=== PATIENT | female | born 1980 | race Caucasian/White ===

== ENCOUNTER 2018-03-04 17:13 | Emergency (ER) | payer SELFPAY ==
--- NOTE | 2018-03-04 18:50 | RAD REPORT ---
EXAM DESCRIPTION: CT - Head Brain Wo Cont - 03/04/2018 6:40 pm CLINICAL HISTORY: Dizziness COMPARISON: 2013 TECHNIQUE: Computed axial tomography of the head was obtained. IV contrast was not requested. All CT scans are performed using dose optimization technique as appropriate and may include automated exposure control or mA/KV adjustment according to patient size. FINDINGS: An intracranial bleed is not seen . The ventricles are normal in caliber. No extra-axial fluid collection is noted. Fluid within the sinuses/ mastoids is not seen. IMPRESSION: No acute intracranial abnormality is seen. If patient's symptoms persist MRI of the bra in would be recommended.
[2018-03-04 18:51] LABS: Absolute Lymphocytes (CBC) 3.4 K/uL (0.7-4.9); Absolute Monocytes 0.8 K/uL (0.1-1.3); Absolute Neutrophil 4.8 K/uL (1.8-8.0); Basophils % 0.3 % (0-1.3); Eosinophils % 1.7 % (0-4.4); Hematocrit 35.1 % (36.0-45.0); Lymphocytes % 37.1 % (15.3-44.8); MCH 31.2 pg (27.0-35.0); MCV 89.4 fL (80-100); MPV 8.1 fL (7.6-11.3); Monocytes % 8.6 % (3.3-12.3); RBC Red Blood Cell Count 3.92 M/uL (3.86-4.86)
--- NOTE | 2018-03-04 18:51 | RAD REPORT ---
EXAM DESCRIPTION: [facility] Single View03/04/2018 6:45 pm CLINICAL HISTORY: cough COMPARISON: none FINDINGS: The lungs appear clear of acute infiltrate. The heart is normal size IMPRESSION: No acute abnormalities displayed
[2018-03-04 19:11] LABS: ALT/SGPT 49 U/L (12-78); AST/SGOT 54 U/L (15-37); Alkaline Phosphatase 59 U/L (45-117); BUN Blood Urea Nitrogen 9 mg/dL (7-18); Bicarbonate 30 mmol/L (21-32); Bilirubin Direct 0.1 mg/dL (0-0.2); Bilirubin Total 0.3 mg/dL (0.2-1.0); Glucose Level 84 mg/dL (74-106); Lipase 229 U/L (73-393); Magnesium 2.4 mg/dL (1.8-2.4); NT PRO-BNP 11 pg/mL (<125); Potassium 3.7 mmol/L (3.5-5.1); Protein, Total 7.6 g/dL (6.4-8.2); Sodium Level 142 mmol/L (136-145); Troponin (Emerg Dept Use Only) < 0.02 ng/mL (0.0-0.045)
[2018-03-04 19:12] LABS: Urine Blood NEGATIVE (NEG); Urine Glucose NEGATIVE (NEG); Urine Protein NEGATIVE (NEG)
[2018-03-04 19:16] LABS: Protime INR 1.05
--- NOTE | 2018-03-04 21:41 | EDPHYS ---
Physician Documentation [facility] Name: Tawnya Simental Age: 38 yrs Sex: Female : 1980 Arrival Date: 03/04/2018 Time: 17:15 Bed 28 Private MD: None, None ED Physician Harshad Mohamud HPI: 03/04 18:26 This 38 yrs old Female presents to ER via Ambulatory with complaints of High king Blood Pressure, Facial Swelling. 18:26 The patient has elevated blood pressure and discovered this at home. Onset: The king symptoms/episode began/occurred 3 month(s) ago. Modifying factors: The symptoms are aggravated by activity, The symptoms are alleviated by remaining still. Historical: - Allergies: 17:25 No Known Allergies; sv - Home Meds: 17:25 None [Active]; sv - PMHx: 17:25 None; sv - PSHx: 17:25 Tubal ligation; sv - Immunization history:: Flu vaccine is not up to date. - Social history:: Smoking status: Patient/guardian denies using tobacco, the patient reports quitting approximately .25 years ago. - Ebola Screening: : No symptoms or risks identified at this time. ROS: 18:27 Constitutional: Negative for fever, chills, and weight loss, Eyes: Negative for injury, king pain, redness, and discharge, ENT: Negative for injury, pain, and discharge, Neck: Negative for injury, pain, and swelling, Cardiovascular: Negative for chest pain, palpitations, and edema, Abdomen/GI: Negative for abdominal pain, nausea, vomiting, diarrhea, and constipation, Back: Negative for injury and pain, : Negative for injury, bleeding, discharge, and swelling, MS/Extremity: Negative for injury and deformity, Skin: Negative for injury, rash, and discoloration, Psych: Negative for depression, anxiety, suicide ideation, homicidal ideation, and hallucinations, Allergy/Immunology: Negative for hives, rash, and allergies, Endocrine: Negative for neck swelling, polydipsia, polyuria, polyphagia, and marked weight changes, Hematologic/Lymphatic: Negative for swollen nodes, abnormal bleeding, and unusual bruising. 18:27 Respiratory: Positive for cough, shortness of breath. 18:27 Neuro: Positive for dizziness, speech changes, weakness, of the right arm. Exam: 18:27 Constitutional: This is a well developed, well nourished patient who is awake, alert, king and in no acute distress. Head/Face: Normocephalic, atraumatic. Eyes: Pupils equal round and reactive to light, extra-ocular motions intact. Lids and lashes normal. Conjunctiva and sclera are non-icteric and not injected. Cornea within normal limits. Periorbital areas with no swelling, redness, or edema. ENT: Nares patent. No nasal discharge, no septal abnormalities noted. Tympanic membranes are normal and external auditory canals are clear. Oropharynx with no redness, swelling, or masses, exudates, or evidence of obstruction, uvula midline. Mucous membranes moist. Neck: Trachea midline, no thyromegaly or masses palpated, and no cervical lymphadenopathy. Supple, full range of motion without nuchal rigidity, or vertebral point tenderness. No Meningismus. Chest/axilla: Normal chest wall appearance and motion. Nontender with no deformity. No lesions are appreciated. Cardiovascular: Regular rate and rhythm with a normal S1 and S2. No gallops, murmurs, or rubs. Normal PMI, no JVD. No pulse deficits. Respiratory: Lungs have equal breath sounds bilaterally, clear to auscultation and percussion. No rales, rhonchi or wheezes noted. No increased work of breathing, no retractions or nasal flaring. Abdomen/GI: Soft, non-tender, with normal bowel sounds. No distension or tympany. No guarding or rebound. No evidence of tenderness throughout. Back: No spinal tenderness. No costovertebral tenderness. Full range of motion. Pelvic Exam: Normal external genitalia. Speculum exam with closed cervical os, no discharge or bleeding noted. Bimanual exam with normal adnexa, no adnexal or cervical motion tenderness. Normal uterus. Skin: Warm, dry with normal turgor. Normal color with no rashes, no lesions, and no evidence of cellulitis. MS/ Extremity: Pulses equal, no cyanosis. Neurovascular intact. Full, normal range of motion. Neuro: Awake and alert, GCS 15, oriented to person, place, time, and situation. Cranial nerves II-XII grossly intact. Motor strength 5/5 in all extremities. Sensory grossly intact. Cerebellar exam normal. Normal gait. Psych: Awake, alert, with orientation to person, place and time. Behavior, mood, and affect are within normal limits. Vital Signs: 17:25 BP 140 / 102; Pulse 68; Resp 20; Temp 97.8; Pulse Ox 100% ; Weight 91.63 kg; Height 5 sv ft. 11 in. (180.34 cm); Pain 4/10; 18:17 BP 124 / 85; Pulse 63; Resp 17; Pulse Ox 98% on R/A; rv 18:57 BP 128 / 82; Pulse 65; Resp 16; Pulse Ox 100% ; rv 19:35 BP 103 / 68; Pulse 56; Resp 16; Pulse Ox 96% on R/A; rv 20:24 BP 122 / 83; Pulse 58; Resp 13; Pulse Ox 96% on R/A; rv 17:25 Body Mass Index 28.17 (91.63 kg, 180.34 cm) sv NIH Stroke Scale Scores: 18:28 NIHSS Score: 0 king MDM: 18:18 Patient medically screened. king 18:29 Data reviewed: vital signs, nurses notes, lab test result(s), EKG, radiologic studies, [facility] CT scan, plain films. 03/04 18:26 Order name: Basic Metabolic Panel; Complete Time: 19:59 [facility] 03/04 18:26 Order name: CBC with Diff; Complete Time: 19:59 [facility] 03/04 18:26 Order name: LFT's; Complete Time: 19:59 [facility] 03/04 18:26 Order name: Magnesium; Complete Time: 19:59 [facility] 03/04 18:26 Order name: NT PRO-BNP; Complete Time: 19:59 [facility] 03/04 18:26 Order name: PT-INR; Complete Time: 19:59 [facility] 03/04 18:26 Order name: Troponin (emerg Dept Use Only); Complete Time: 19:59 [facility] 03/04 18:26 Order name: XRAY Chest (1 view); Complete Time: 19:59 [facility] 03/04 18:26 Order name: Lipase; Complete Time: 19:59 [facility] 03/04 18:26 Order name: D-Dimer; Complete Time: 19:59 [facility] 03/04 18:26 Order name: Urine Dipstick--Ancillary (enter results); Complete Time: 19:59 03/04 18:26 Order name: Urine --Ancillary (enter results); Complete Time: 19:59 03/04 18:30 Order name: CT Head Brain wo Cont; Complete Time: 19:59 [facility] 03/04 20:00 Order name: Troponin (emerg Dept Use Only); Complete Time: 21:13 [facility] 03/04 18:26 Order name: EKG; Complete Time: 18:27 [facility] 03/04 18:26 Order name: Cardiac monitoring; Complete Time: 19:43 [facility] 03/04 18:26 Order name: EKG - Nurse/Tech; Complete Time: 19:43 [facility] 03/04 18:26 Order name: IV Saline Lock; Complete Time: 18:38 [facility] 03/04 18:26 Order name: Labs collected and sent; Complete Time: 18:38 [facility] 03/04 18:26 Order name: O2 Per Protocol; Complete Time: 18:38 [facility] 03/04 18:26 Order name: O2 Sat Monitoring; Complete Time: 18:38 [facility] 03/04 18:26 Order name: Urine Dipstick-Ancillary (obtain specimen); Complete Time: 18:38 [facility] 03/04 18:26 Order name: Urine Test (obtain specimen); Complete Time: 18:38 [facility] 03/04 21:18 Order name: CONS Physician Consult EDMS 03/04 21:18 Order name: Echo with Doppler EDMS Administered Medications: 21:55 Drug: Lovenox 1 mg/kg Route: Sub-Q; Site: left lower abdomen; rv 23:18 Follow up: Response: No adverse reaction rv 21:55 Drug: Pepcid 20 mg Route: IVP; Site: right forearm; rv 23:18 Follow up: Response: No adverse reaction rv 21:56 Drug: Aspirin Chewable Tablet 324 mg Route: PO; rv 23:18 Follow up: Response: No adverse reaction rv Disposition: 03/04/18 21:14 Hospitalization ordered by Aristeo Wilhelm for Observation. Preliminary diagnosis are Other chest pain, Essential (primary) hypertension, Abnormal electrocardiogram [ECG] [EKG]. - Bed requested for Telemetry/MedSurg (observation). - Status is Observation. rv - Condition is Stable. - Problem is new. - Symptoms have improved. UTI on Admission? No NIH Stroke Scale - NIH Stroke Score Date: 03/04/2018 Time: 18:28 Total Score = 0 1a. Level of Consciousness (LOC) - 0(Alert) 1b. Level of Consciousness (LOC) (Year \T\ Age) - 0(Both) 1c. LOC Commands (Open \T\ Closes Eyes/Cattle Examiner) - 0(Both) 2. Best Gaze (Lateral Gaze Paresis) - 0(Normal) 3. Visual Field Loss - 0(No visual loss) 4. Facial Palsy - 0(Normal) 5a. Left Arm: Motor (10-second hold) - 0(No drift) 5b. Right Arm: Motor (10-second hold) - 0(No drift) 6a. Left Leg: Motor (5-second hold - always test supine) - 0(No drift) 6b. Right Leg: Motor (5-second hold - always test supine) - 0(No drift) 7. Limb Ataxia (finger/nose \T\ heel/baumann - test with eyes open) - 0(Absent) 8. Sensory Loss (pinprick arms/legs/face) - 0(Normal) 9. Best Language: Aphasia (description/naming/reading) - 0(No aphasia) 10. Dysarthria (speech clarity - read or repeat words) - 0(Normal) 11. Extinction and Inattention (visual/tactile/auditory/spatial/personal) - 0(No abnormality) Initials: [facility] Signatures: Dispatcher [employer] EDKeila Willoughby RN RN sv Anderson, Corey, MD MD cha Martinez, Eric em1 Patrick Macias RN RN rv Corrections: (The following items were deleted from the chart) 20:01 20:00 Repeat Cardiac Enzymes at ordered. formerly [facility] 21:39 21:14 Hospitalization Ordered by Aristeo Wilhelm MD for Observation. Preliminary em1 diagnosis is Other chest pain; Essential (primary) hypertension; Abnormal electrocardiogram [ECG] [EKG]. Bed requested for Telemetry/MedSurg (observation). Status is Observation. Condition is Stable. Problem is new. Symptoms have improved. UTI on Admission? No. king 23:19 21:39 03/04/2018 21:14 Hospitalization Ordered by Aristeo Wilhelm MD for rv Observation. Preliminary diagnosis is Other chest pain; Essential (primary) hypertension; Abnormal electrocardiogram [ECG] [EKG]. Bed requested for Telemetry/MedSurg (observation). Status is Observation. Condition is Stable. Problem is new. Symptoms have improved. UTI on Admission? No. em1
--- NOTE | 2018-03-04 21:41 | ER ---
Nurse's Notes [facility] Name: Tawnya Simental Age: 38 yrs Sex: Female : 1980 Arrival Date: 03/04/2018 Time: 17:15 Bed 28 Private MD: None, None Diagnosis: Other chest pain;Essential (primary) hypertension;Abnormal electrocardiogram [ECG] [EKG] Presentation: 03/04 17:23 Presenting complaint: Patient states: HTN at the dentist today, facial and hand sv swelling over the last couple of months, weight gain, fatigue, left side pain. Denies dysuria. Transition of care: patient was not received from another setting of care. Onset of symptoms was March 04, 2018. Care prior to arrival: None. 17:23 Method Of Arrival: Ambulatory sv 17:23 Acuity: JUAN 3 sv 18:17 Risk Assessment: Do you want to hurt yourself or someone else? Patient reports no rv desire to harm self or others. Initial Sepsis Screen: Does the patient meet any 2 criteria? No. Patient's initial sepsis screen is negative. Does the patient have a suspected source of infection? No. Patient's initial sepsis screen is negative. Triage Assessment: 17:26 General: Appears in no apparent distress. comfortable, Behavior is calm, cooperative, sv appropriate for age. Neuro: Level of Consciousness is awake, alert, obeys commands, Oriented to person, place, time, situation, Moves all extremities. Full function Gait is steady. Respiratory: Respiratory effort is even, unlabored, Respiratory pattern is regular, symmetrical. Historical: - Allergies: 17:25 No Known Allergies; sv - Home Meds: 17:25 None [Active]; sv - PMHx: 17:25 None; sv - PSHx: 17:25 Tubal ligation; sv - Immunization history:: Flu vaccine is not up to date. - Social history:: Smoking status: Patient/guardian denies using tobacco, the patient reports quitting approximately .25 years ago. - Ebola Screening: : No symptoms or risks identified at this time. Screenin:16 Abuse screen: Denies threats or abuse. Denies injuries from another. Nutritional rv screening: No deficits noted. Tuberculosis screening: No symptoms or risk factors identified. Fall Risk None identified. Assessment: 18:16 General: Appears in no apparent distress. comfortable, Behavior is calm, cooperative. rv Pain: Complains of pain in LEFT FLANK. Neuro: Level of Consciousness is awake, alert, obeys commands, Oriented to person, place, time, situation. Cardiovascular: Capillary refill < 3 seconds. Respiratory: Airway is patent. GI: No signs and/or symptoms were reported involving the gastrointestinal system. : No signs and/or symptoms were reported regarding the genitourinary system. EENT: No signs and/or symptoms were reported regarding the EENT system. Derm: Skin is intact. 19:36 Reassessment: Patient appears in no apparent distress at this time. Patient and/or rv family updated on plan of care and expected duration. Pain level reassessed. Patient is alert, oriented x 3, equal unlabored respirations, skin warm/dry/pink. Vital Signs: 17:25 BP 140 / 102; Pulse 68; Resp 20; Temp 97.8; Pulse Ox 100% ; Weight 91.63 kg; Height 5 sv ft. 11 in. (180.34 cm); Pain 4/10; 18:17 BP 124 / 85; Pulse 63; Resp 17; Pulse Ox 98% on R/A; rv 18:57 BP 128 / 82; Pulse 65; Resp 16; Pulse Ox 100% ; rv 19:35 BP 103 / 68; Pulse 56; Resp 16; Pulse Ox 96% on R/A; rv 20:24 BP 122 / 83; Pulse 58; Resp 13; Pulse Ox 96% on R/A; rv 17:25 Body Mass Index 28.17 (91.63 kg, 180.34 cm) sv NIH Stroke Scale Scores: 18:28 NIHSS Score: 0 [facility] ED Course: 17:15 Patient arrived in ED. sb2 17:15 None, None is Private Physician. sb2 17:24 Triage completed. sv 17:25 Arm band placed on. sv 18:17 Patient has correct armband on for positive identification. Bed in low position. Call rv light in reach. Side rails up X 1. Adult w/ patient. Pulse ox on. NIBP on. 18:18 Harshad Mohamud MD is Attending Physician. [facility] 18:35 Inserted saline lock: 20 gauge in right forearm, using aseptic technique. Blood rv collected. 18:35 Initial lab(s) drawn, by pa, sent to lab. rv 18:38 Urine --Ancillary (enter results) Sent. rv 18:38 Urine Dipstick--Ancillary (enter results) Sent. rv 18:38 D-Dimer Sent. rv 18:42 CT Head Brain wo Cont In Process Unspecified. EDMS 18:46 XRAY Chest (1 view) In Process Unspecified. EDMS 18:56 No provider procedures requiring assistance completed. rv 19:43 nuclear monitoring technician on. jp3 19:43 EKG done, by ED staff, reviewed by Harshad Mohamud MD. jp3 21:13 Aristeo Wilhelm MD is Hospitalizing Provider. king 23:19 IV discontinued, bleeding controlled, No redness/swelling at site. Pressure dressing rv applied. Administered Medications: 21:55 Drug: Lovenox 1 mg/kg Route: Sub-Q; Site: left lower abdomen; rv 23:18 Follow up: Response: No adverse reaction rv 21:55 Drug: Pepcid 20 mg Route: IVP; Site: right forearm; rv 23:18 Follow up: Response: No adverse reaction rv 21:56 Drug: Aspirin Chewable Tablet 324 mg Route: PO; rv 23:18 Follow up: Response: No adverse reaction rv Outcome: 21:14 Decision to Hospitalize by Provider. king 23:19 Discharged to home ambulatory. rv 23:19 Condition: good 23:19 Discharge instructions given to patient, Instructed on Demonstrated understanding of instructions, follow-up care. 23:19 Patient left the ED. rv NIH Stroke Scale - NIH Stroke Score Date: 03/04/2018 Time: 18:28 Total Score = 0 1a. Level of Consciousness (LOC) - 0(Alert) 1b. Level of Consciousness (LOC) (Year \T\ Age) - 0(Both) 1c. LOC Commands (Open \T\ Closes Eyes/Heading Saw Operator) - 0(Both) 2. Best Gaze (Lateral Gaze Paresis) - 0(Normal) 3. Visual Field Loss - 0(No visual loss) 4. Facial Palsy - 0(Normal) 5a. Left Arm: Motor (10-second hold) - 0(No drift) 5b. Right Arm: Motor (10-second hold) - 0(No drift) 6a. Left Leg: Motor (5-second hold - always test supine) - 0(No drift) 6b. Right Leg: Motor (5-second hold - always test supine) - 0(No drift) 7. Limb Ataxia (finger/nose \T\ heel/baumann - test with eyes open) - 0(Absent) 8. Sensory Loss (pinprick arms/legs/face) - 0(Normal) 9. Best Language: Aphasia (description/naming/reading) - 0(No aphasia) 10. Dysarthria (speech clarity - read or repeat words) - 0(Normal) 11. Extinction and Inattention (visual/tactile/auditory/spatial/personal) - 0(No abnormality) Initials: king Signatures: Dispatcher [employer] Keila Sheridan RN RN sv Anderson, Corey, MD MD cha Billeau, Sheri sb2 Patrick Macias RN RN rv Lawrence Knight jp3 Corrections: (The following items were deleted from the chart) 17:26 17:23 Presenting complaint: Patient states: HTN at the dentist today, facial sv and hand swelling over the last couple of months, fatigue. sv 17:27 17:23 Presenting complaint: Patient states: HTN at the dentist today, facial sv and hand swelling over the last couple of months, fatigue, left side pain. Denies dysuria. sv 17:27 17:25 Pulse 68bpm; Resp 20bpm; Pulse Ox 100%; Temp 97.8F; 91.63 kg; Height 5 sv ft. 11 in.; BMI: 28.1; sv 18:58 18:57 Condition: good rv rv 18:58 18:57 Discharged to home via wheelchair, rv rv 18:58 18:57 Discharge instructions given to patient, Instructed on medication usage, rv Demonstrated understanding of instructions, follow-up care, medications, Prescriptions given X 1, rv 18:59 18:56 IV discontinued, bleeding controlled, No redness/swelling at site. rv Pressure dressing applied, rv
[2018-03-04] MEDS ORDERED: ASPIRIN 81 MG CHEWABLE TABLET ONE (21:46)
[2018-03-04] MEDS ORDERED: FAMOTIDINE 20 MG/2 ML VIAL IV ONE (21:47)
[2018-03-04] MEDS ORDERED: ENOXAPARIN 100 MG/ML SYR SQ ONE (21:47)
--- NOTE | 2018-03-04 22:07 | P.CNS ---
Date of Consult: 03/04/18 Reason for Consult: Chest pain Requesting Physician: Harshad Mohamud Chief Complaint: High blood pressure History of Present Illness: Ms Simental is a 38 years old woman with pretty benign past medical, start about 3 months ago with right side of the neck pain, on and off associated with back pain. She also complaining of recurrent episode of swelling face. She denies any allergy, stuffy nose or itchiness with that have. Today she was having dinner and had had BP checked. It was 177/102. She denied any chest pain or shortness of breath tonight. No nausea, vomiting or diaphoresis. He denied any headache or dizziness. Lab work shows normal WBC count, trauma I negative x2, D-dimer negative. Her creatinine is slightly elevated 1.4. EKG shows sinus rhythm at 60 BP and with nonspecific ST abnormality. Allergies No Known Allergies Allergy (Unverified 03/04/18 22:00) Home medications list reviewed: Yes - Past Medical/Surgical History Past Medical History: Reviewed- Non-Contributory -: Tubal ligation - Social History Smoking Status: Former smoker Alcohol use: No CD- Drugs: No Place of Residence: Home Review of Systems 10-point ROS is otherwise unremarkable Physical Examination General: Alert, In no apparent distress HEENT: Atraumatic, PERRLA, Mucous membr. moist/pink, EOMI, Sclerae nonicteric Neck: Supple, 2+ carotid pulse no bruit, No LAD, Without JVD or thyroid abnormality Respiratory: Clear to auscultation bilaterally, Normal air movement Cardiovascular: Regular rate/rhythm, Normal S1 S2 Gastrointestinal: Normal bowel sounds, No tenderness Musculoskeletal: No tenderness Integumentary: No rashes Neurological: Normal gait, Normal speech, Normal tone, Normal affect Lymphatics: No axilla or inguinal lymphadenopathy Laboratory Data (last 24 hrs) 03/04/18 18:35: PT 12.4, INR 1.05 03/04/18 18:35: WBC 9.2, Hgb 12.2, Hct 35.1 L, Plt Count 267 03/04/18 18:35: Sodium 142, Potassium 3.7, BUN 9, Creatinine 1.40 H, Glucose 84 , Magnesium 2.4, Total Bilirubin 0.3, AST 54 H, ALT 49, Alkaline Phosphatase 59 , Lipase 229 - Problems (1) Hypertension Current Visit: Yes Status: Acute Qualifiers: Hypertension type: essential hypertension Qualified Code(s): I10 - Essential (primary) hypertension (2) Acute renal injury Current Visit: Yes Status: Acute (3) Atypical chest pain Current Visit: Yes Status: Acute Conclusions/Impression: The patient initial blood pressure in ER was 140/102. At this point she has no specific complaints. Kidney function is mildly abnormal, differential diagnosis include dehydration, uncontrolled high blood pressure. He has received IV fluids. At my encounter the BP was within normal limits. A have offered to the patient to stay Overnight for better blood pressure monitor, and further studies, but she preferred to follow up as outpatient. I have encouraged the patient to find a PCP harry and have also advised the patient to come back to ED if symptoms get worse. She will be discharged home in stable condition. Patient Discharge Instructions: establish PCP HARRY and monitor BP Diet: AHA Activity: Ad yoanna
--- NOTE | 2018-03-05 07:14 | EKG ---
Test Date: 2018-03-04 Test Time: 19:36:41 Computer Technology Trainer: JUANY MEASUREMENT RESULTS: Intervals: Rate: 58 MO: 232 QRSD: 84 QT: 368 QTc: 361 [place]: P: 44 MO: 232 QRS: 60 T: 158 INTERPRETIVE STATEMENTS: Sinus bradycardia with 1st degree AV block ST & T wave abnormality, consider inferior ischemia Abnormal ECG No previous ECG available for comparison Electronically Signed On 03-05-18 07:13:48 CLERGY MEMBER by Kaiser Llanos
== END 2018-03-04 22:45 | disposition home or self-care (01) ==
LOC: ER 17:13 → ERHOLD 21:15 → UNDOADMOB 21:15 → ER 22:45 → UNDODISOB 22:45
DX: I10 Essential (primary) hypertension (principal); R07.89 Other chest pain; R94.31 Abnormal electrocardiogram [ECG] [EKG]; Z87.891 Personal history of nicotine dependence; N17.9 Acute kidney failure, unspecified
CPT/HCPCS: 36415; 70450; 71045; 80048; 80076; 81003; 81025; 83690; 83735; 83880; 84484; 85025; 85379; 85610; 93005; 96372; 96374; 99284; G0378; J1650

== ENCOUNTER 2019-10-11 16:29 | Emergency (ER) | payer SELFPAY ==
[2019-10-11 18:23] LABS: Absolute Lymphocytes (CBC) 2.6 K/uL (0.7-4.9); Basophils % 0.7 % (0-1.3); Hematocrit 42.4 % (36.0-45.0); Lymphocytes % 23.9 % (15.3-44.8); MPV 8.4 fL (7.6-11.3); RBC Red Blood Cell Count 4.92 M/uL (3.86-4.86)
[2019-10-11 18:47] LABS: ALT/SGPT 32 U/L (12-78); AST/SGOT 22 U/L (15-37); Albumin 3.7 g/dL (3.4-5.0); Alkaline Phosphatase 83 U/L (45-117); BUN Blood Urea Nitrogen 9 mg/dL (7-18); Bicarbonate 24 mmol/L (21-32); Bilirubin Direct < 0.1 mg/dL (0-0.2); Bilirubin Total 0.2 mg/dL (0.2-1.0); Glucose Level 104 mg/dL (74-106); Magnesium 2.1 mg/dL (1.8-2.4); Potassium 3.4 mmol/L (3.5-5.1); Protein, Total 7.1 g/dL (6.4-8.2); Sodium Level 140 mmol/L (136-145); T3 Free 2.38 pg/mL (2.18-3.98); Thyroid Stimulating Hormone 0.009 uIU/mL (0.360-3.740); Troponin (Emerg Dept Use Only) < 0.02 ng/mL (0.0-0.045)
--- NOTE | 2019-10-11 19:19 | RAD REPORT ---
EXAM DESCRIPTION: RAD - Chest Single View - 10/11/2019 6:23 pm CLINICAL HISTORY: Chest pain;Palpitations COMPARISON: Single-view chest February 2018 TECHNIQUE: AP portable chest image was obtained 10/11/2019 6:23 pm . FINDINGS: Lungs are clear. Heart and vasculature are normal. No measurable pleural effusion and no p neumothorax. No acute bony abnormality seen. No acute aortic findings suspected. IMPRESSION: No acute cardiopulmonary process. No significant change
--- NOTE | 2019-10-11 19:25 | RAD REPORT ---
EXAM DESCRIPTION: CT - Abdomen Pelvis W Contrast - 10/11/2019 7:16 pm CLINICAL HISTORY: ABD PAIN COMPARISON: No comparisons TECHNIQUE: Biphasic, helical CT imaging of the abdomen and pelvis was performed following 100 ml non -ionic IV contrast. No oral contrast was given. All CT scans are performed using dose optimization technique as appropriate and may include automated exposure control or mA/KV adjustment according to patient size. FINDINGS: No suspicious findings in the lung bases. The liver, spleen, and pancreas show no suspicious findings. Gallbladder and biliary tree are also wi thout suspicious finding. Gallstones can be occult on CT imaging. Symmetric renal function is seen with no hydronephrosis or suspicious renal mass. No pyelonephritis o r acute parenchymal process. No bladder abnormalities. Right adrenal gland is normal. Left adrenal gl and contains a 12 millimeter low-attenuation mass. Attenuation value is 9 Hounsfield units. This is m ost likely an incidental adenoma. No uterine abnormality. Ovaries and adnexa within normal limits. Th ere is a 2 centimeter cyst along the right-side anterior vaginal wall or labia. This could be a vagin al inclusion cyst, Stefany's duct cyst or possibly a Bartholin's cyst. None are considered of acute c linical significance. No dilated bowel loops or bowel wall thickening. No free air, free fluid or inflammatory stranding. No mass or bulky lymphadenopathy. Patient has a small 20 millimeter x 10 millimeter umbilical fat on ly hernia. Neck is equal to the transverse diameter of the hernia. No suspicious bony findings. IMPRESSION: Contrast enhanced CT abdomen and pelvis showing no significant or suspicious finding. Nonacute findings detailed in the body of the report.
--- NOTE | 2019-10-11 19:41 | ER ---
Nurse's Notes [facility] Name: Tawnya Simental Age: 39 yrs Sex: Female : 1980 Arrival Date: 10/11/2019 Time: 16:32 Bed 8 Private MD: Diagnosis: Essential (primary) hypertension;Dyspnea;Hypokalemia;Thyrotoxicosis [hyperthyroidism] Presentation: 10/10 16:40 Chief complaint: Patient states: SOB for 3 months, Dizziness intermittently. High blood ll1 pressure today. Feels dizzy with near syncope .States her thyroid levels were low yesterday. Coronavirus screen: Proceed with normal triage. Patient denies a cough. Patient denies shortness of breath or difficulty breathing. Patient denies measured and/or subjective temperature greater than 100.4F prior to today's visit. Patient denies travel on a cruise ship or to a country the [facility] currently lists as an affected area. Patient denies contact with known and/or suspected case of COVID-19. Ebola Screen: Patient denies travel to an Ebola-affected area in the 21 days before illness onset. Initial Sepsis Screen: Does the patient meet any 2 criteria? HR > 90 bpm. No. Patient's initial sepsis screen is negative. Risk Assessment: Do you want to hurt yourself or someone else? Patient reports no desire to harm self or others. Onset of symptoms was July 11, 2019. 16:40 Method Of Arrival: Ambulatory ll1 16:40 Acuity: JUAN 3 ll1 20:04 Initial Sepsis Screen: Does the patient have a suspected source of infection? No. mg2 Patient's initial sepsis screen is negative. 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 - Social history:: Smoking status: Patient/guardian denies using tobacco, the patient reports quitting approximately 2 years ago, Patient/guardian denies using alcohol, street drugs, tobacco products. Screenin:29 Abuse screen: Denies threats or abuse. Nutritional screening: No deficits noted. Tuberculosis screening: No symptoms or risk factors identified. Fall Risk None identified. Assessment: 18:00 General: Appears in no apparent distress. Behavior is calm, cooperative, appropriate ah for age. Pain: Denies pain. Neuro: Level of Consciousness is awake, alert, obeys commands, Oriented to person, place, time, situation, Appropriate for age Reports dizziness, since a few hours. Cardiovascular: Capillary refill < 3 seconds Patient's skin is warm and dry. Pulses are palpable in right radial artery and left radial artery Rhythm is irregular. Respiratory: Airway is patent Respiratory effort is even, unlabored, Respiratory pattern is regular, symmetrical, Breath sounds are clear bilaterally. GI: Derm: Skin is intact, is healthy with good turgor, Skin is dry. 19:00 Reassessment: Patient and/or family updated on plan of care and expected duration. Pain ah level reassessed. Patient is alert, oriented x 3, equal unlabored respirations, skin warm/dry/pink. 20:03 Reassessment: Patient appears in no apparent distress at this time. Patient states mg2 feeling better. Patient states symptoms have improved. Vital Signs: 16:40 BP 165 / 105; Pulse 105; Resp 18; Temp 98.8; Pulse Ox 96% ; Pain 8/10; ll1 17:36 BP 146 / 81; Pulse 80; Resp 17; Pulse Ox 99% ; ll1 18:30 BP 135 / 90; Pulse 73; Resp 19; Pulse Ox 99% on R/A; em 20:02 BP 144 / 82; Pulse 81; Resp 17; Temp 98.5; Pulse Ox 100% on R/A; mg2 ED Course: 16:32 Patient arrived in ED. bp1 16:40 Kemar Lomas MD is Attending Physician. kdr 16:42 Triage completed. ll1 16:43 Arm band placed on Patient notified of wait time. ll1 17:50 Dianna Llanos, RN is Primary Nurse. ah 18:18 Initial lab(s) drawn, by me, sent to lab. EKG done, by ED staff, reviewed by Kemar Lomas MD X-ray(s) taken. Inserted saline lock: 20 gauge in right antecubital area, using aseptic technique. Blood collected. Patient maintains SpO2 saturation greater than 95% on room air. 18:19 Bed in low position. Call light in reach. Side rails up X 1. Warm blanket given. Verbal jp3 reassurance given. monitor worker on. Pulse ox on. NIBP on. 18:23 XRAY Chest (1 view) In Process Unspecified. EDWA 19:15 Attending Physician role handed off by Kemar Lomas MD cha 19:15 Harshad Mohamud MD is Attending Physician. [facility] 19:16 CT Abd/Pelvis - IV Contrast Only In Process Unspecified. EDMS 19:39 Keila Pedersen MD is Referral Physician. king 20:03 No provider procedures requiring assistance completed. IV discontinued, intact, mg2 bleeding controlled, No redness/swelling at site. Pressure dressing applied. Administered Medications: 19:45 Drug: ToPROL XL 25 mg Route: PO; mg2 20:03 Follow up: Response: No adverse reaction; Medication administered at discharge. mg2 Outcome: 19:40 Discharge ordered by . king 20:03 Discharged to home ambulatory, with family. mg2 20:03 Condition: good 20:03 Discharge instructions given to patient, family, Instructed on discharge instructions, follow up and referral plans. medication usage, Demonstrated understanding of instructions, follow-up care, medications, Prescriptions given X 2. 20:04 Patient left the ED. mg2 Signatures: Dispatcher [employer] EDWA Harshad Mohamud MD MD cha Rittger, Kevin, MD MD kdr Munoz, Edgar, RN RN Dionisio Miller RN RN mg2 Lawrence Knight jp3 Dianna Llanos, RN Erasmo Farnsworth RN RN ll1 Monserrat Elizalde bp1 Corrections: (The following items were deleted from the chart) 16:44 16:40 Chief complaint: Patient states: SOB for 3 months, Dizziness intermittently. High ll1 blood pressure today. Feels dizzy with near syncope. ll1
--- NOTE | 2019-10-11 19:41 | EDPHYS ---
Physician Documentation [facility] Name: Tawnya Simental Age: 39 yrs Sex: Female : 1980 Arrival Date: 10/11/2019 Time: 16:32 Bed 8 Private MD: VAIBHAV Physician Harshad Mohamud HPI: 10/10 17:48 This 39 yrs old Female presents to ER via Ambulatory with complaints of High kdr Blood Pressure, Shortness Of Breath, Dizziness. 17:48 The patient presents with multiple c/o including palpations, near syncope, dizziness, kdr left lower leg hassan (today), abdominal pain (2 months). Severity of symptoms: At their worst the symptoms were moderate severe incapacitating just prior to arrival, today, in the emergency department the symptoms are unchanged. The patient has experienced similar episodes in the past, several times. The patient has been recently seen by a physician: the patient's primary care provider. The patient states that she feels like her hypothyroid s/s are returning. States that she only took half of her thyroid medication this morning and that her thyroid medication was recently recalled.. 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 - Social history:: Smoking status: Patient/guardian denies using tobacco, the patient reports quitting approximately 2 years ago, Patient/guardian denies using alcohol, street drugs, tobacco products. ROS: 17:48 Constitutional: Negative for fever, chills, and weight loss, Eyes: Negative for injury, kdr pain, redness, and discharge, ENT: Negative for injury, pain, and discharge, Neck: Negative for injury, pain, and swelling, Respiratory: Negative for shortness of breath, cough, wheezing, and pleuritic chest pain, Abdomen/GI: Negative for abdominal pain, nausea, vomiting, diarrhea, and constipation, Back: Negative for injury and pain, : Negative for injury, bleeding, discharge, and swelling, Skin: Negative for injury, rash, and discoloration, Psych: Negative for depression, anxiety, suicide ideation, homicidal ideation, and hallucinations, Allergy/Immunology: Negative for hives, rash, and allergies, Endocrine: Negative for neck swelling, polydipsia, polyuria, polyphagia, and marked weight changes, Hematologic/Lymphatic: Negative for swollen nodes, abnormal bleeding, and unusual bruising. 17:48 Cardiovascular: Positive for chest pain, palpitations, Negative for edema, orthopnea, paroxysmal nocturnal dyspnea. 17:48 Neuro: Positive for dizziness, near syncope, weakness. Exam: 17:48 Constitutional: This is a well developed, well nourished patient who is awake, alert, kdr and in no acute distress. Head/Face: Normocephalic, atraumatic. Eyes: Pupils equal round and reactive to light, extra-ocular motions intact. Lids and lashes normal. Conjunctiva and sclera are non-icteric and not injected. Cornea within normal limits. Periorbital areas with no swelling, redness, or edema. Neck: Trachea midline, no thyromegaly or masses palpated, and no cervical lymphadenopathy. Supple, full range of motion without nuchal rigidity, or vertebral point tenderness. No Meningismus. Chest/axilla: Normal chest wall appearance and motion. Nontender with no deformity. No lesions are appreciated. Cardiovascular: Regular rate and rhythm with a normal S1 and S2. No gallops, murmurs, or rubs. Normal PMI, no JVD. No pulse deficits. Respiratory: Lungs have equal breath sounds bilaterally, clear to auscultation and percussion. No rales, rhonchi or wheezes noted. No increased work of breathing, no retractions or nasal flaring. Back: No spinal tenderness. No costovertebral tenderness. Full range of motion. Skin: Warm, dry with normal turgor. Normal color with no rashes, no lesions, and no evidence of cellulitis. MS/ Extremity: Pulses equal, no cyanosis. Neurovascular intact. Full, normal range of motion. Neuro: Awake and alert, GCS 15, oriented to person, place, time, and situation. Cranial nerves II-XII grossly intact. Motor strength 5/5 in all extremities. Sensory grossly intact. Cerebellar exam normal. Normal gait. Psych: Awake, alert, with orientation to person, place and time. Behavior, mood, and affect are within normal limits. 17:48 Abdomen/GI: Inspection: abdomen appears normal, Bowel sounds: active, Palpation: soft, mild abdominal tenderness, in all quadrants, mass, is not appreciated, rebound tenderness, is not appreciated. 19:33 Musculoskeletal/extremity: DVT Exam: No signs of deep vein thrombosis. no pain, no king swelling, no tenderness, negative Homans' sign noted on exam, no appreciated bluish discoloration, no erythema, no increased warmth. 19:38 Musculoskeletal/extremity: no homans and no cords, no trauma, no hc state, no hx pe, no king hx dvt. 19:44 ECG was reviewed by the Attending Physician. [facility] Vital Signs: 16:40 BP 165 / 105; Pulse 105; Resp 18; Temp 98.8; Pulse Ox 96% ; Pain 8/10; ll1 17:36 BP 146 / 81; Pulse 80; Resp 17; Pulse Ox 99% ; ll1 18:30 BP 135 / 90; Pulse 73; Resp 19; Pulse Ox 99% on R/A; em 20:02 BP 144 / 82; Pulse 81; Resp 17; Temp 98.5; Pulse Ox 100% on R/A; mg2 MDM: 19:15 Patient medically screened. king 19:34 Data reviewed: vital signs, nurses notes, lab test result(s), EKG, radiologic studies, king CT scan, plain films. 19:35 Data interpreted: monitoring analyst: rate is 73 beats/min, Pulse oximetry: on room air is king 99 %. Test interpretation: by ED physician or midlevel provider: ECG, plain radiologic studies. Counseling: I had a detailed discussion with the patient and/or guardian regarding: the historical points, exam findings, and any diagnostic results supporting the discharge/admit diagnosis, the presence of at least one elevated blood pressure reading (>120/80) during this emergency department visit, lab results, radiology results, the need for outpatient follow up, for definitive care, an powder room attendant. ED course: all labs reviewed , dr mccord ordered, all discussed with the patient. 10/10 17:47 Order name: Basic Metabolic Panel; Complete Time: 19:32 kdr 10/10 17:47 Order name: CBC with Diff; Complete Time: 19:32 kdr 10/10 17:47 Order name: LFT's; Complete Time: 19:32 kdr 10/10 17:47 Order name: Magnesium; Complete Time: 19:32 kdr 10/10 17:47 Order name: Troponin (emerg Dept Use Only); Complete Time: 19:32 [facility] 10/10 17:47 Order name: TSH; Complete Time: 19:32 [facility] 10/10 17:47 Order name: XRAY Chest (1 view); Complete Time: 19:32 [facility] 10/10 17:47 Order name: EKG; Complete Time: 17:48 kdr 10/10 17:47 Order name: Cardiac monitoring; Complete Time: 18:04 [facility] 10/10 17:47 Order name: EKG - Nurse/Tech; Complete Time: 18:04 [facility] 10/10 17:47 Order name: T3 Free; Complete Time: 19:32 kdr 10/10 18:05 Order name: CT Abd/Pelvis - IV Contrast Only; Complete Time: 19:32 [facility] 10/10 17:47 Order name: IV Saline Lock; Complete Time: 18:19 [facility] 10/10 17:47 Order name: Labs collected and sent; Complete Time: 18:19 kdr 10/10 17:47 Order name: O2 Per Protocol; Complete Time: 18:04 [facility] 10/10 17:47 Order name: O2 Sat Monitoring; Complete Time: 18:04 [facility] 10/10 19:41 Order name: PO challenge: juice; Complete Time: 19:46 king EC:44 Rate is 72 beats/min. Rhythm is regular. QRS [place] is Normal. CA interval is normal. QRS king interval is normal. QT interval is normal. No Q waves. T waves are Normal. No ST changes noted. Clinical impression: Normal ECG and No evidence of ischemia. Interpreted by me. Reviewed by me. Administered Medications: 19:45 Drug: ToPROL XL 25 mg Route: PO; mg2 20:03 Follow up: Response: No adverse reaction; Medication administered at discharge. mg2 Disposition: 10/11/19 19:40 Discharged to Home. Impression: Essential (primary) hypertension, Dyspnea, Hypokalemia, Thyrotoxicosis [hyperthyroidism]. - Condition is Stable. - Discharge Instructions: Potassium Content of Foods, Hypertension, Hyperthyroidism, Shortness of Breath, Shortness of Breath, Pgnv-ng-[id number], Hypertension, Kgat-jf-Ksht, Hypokalemia. - Prescriptions for Pepcid 20 mg Oral Tablet - take 1 tablet by ORAL route every 12 hours for 10 days; 20 tablet. Toprol XL 25 mg Oral Tablet - take 1 tablet by ORAL route once daily; 20 tablet. - Medication Reconciliation Form, Thank You Letter, Antibiotic Education, Prescription Opioid Use form. - Follow up: Private Physician; When: 2 - 3 days; Reason: Recheck today's complaints, Continuance of care, Re-evaluation by your physician. Follow up: Keila Pedersen MD; When: 2 - 3 days; Reason: Recheck today's complaints, Re-evaluation by your physician. - Problem is new. - Symptoms have improved. Signatures: Dispatcher [employer] [facility] Harshad Mohamud MD MD cha Rittger, Kevin, MD MD [facility] Dionisio Gross RN RN mg2 Erasmo Abdalla RN RN ll1 Corrections: (The following items were deleted from the chart) 17:49 17:48 T4 FREE+C.LAB.BRZ ordered. [facility] 19:41 19:40 10/11/2019 19:40 Discharged to Home. Impression: Essential (primary) king hypertension; Dyspnea. Condition is Stable. Forms are Medication Reconciliation Form, Thank You Letter, Antibiotic Education, Prescription Opioid Use. Follow up: Private Physician; When: 2 - 3 days; Reason: Recheck today's complaints, Continuance of care, Re-evaluation by your physician. Follow up: Keila Pedersen; When: 2 - 3 days; Reason: Recheck today's complaints, Re-evaluation by your physician. Problem is new. Symptoms have improved. king 20:04 19:41 10/11/2019 19:40 Discharged to Home. Impression: Essential (primary) mg2 hypertension; Dyspnea; Hypokalemia; Thyrotoxicosis [hyperthyroidism]. Condition is Stable. Discharge Instructions: Hypertension, Shortness of Breath, Shortness of Breath, Xojd-[id number]-Jufl, Hypertension, Cnmm-tp-[id number]. Forms are Medication Reconciliation Form, Thank You Letter, Antibiotic Education, Prescription Opioid Use. Follow up: Private Physician; When: 2 - 3 days; Reason: Recheck today's complaints, Continuance of care, Re-evaluation by your physician. Follow up: Keila Pedersen; When: 2 - 3 days; Reason: Recheck today's complaints, Re-evaluation by your physician. Problem is new. Symptoms have improved. king
[2019-10-11] MEDS ORDERED: METOPROLOL XL 50 MG TAB PO ONE (19:51)
[2019-10-11 20:13] VITALS: BP 144/82; TEMP 98.5; O2SAT 100
--- NOTE | 2019-10-12 06:21 | EKG ---
Test Date: 2019-10-11 Test Time: 17:54:33 Applications System Analyst: JUANY MEASUREMENT RESULTS: Intervals: Rate: 72 MA: 160 QRSD: 82 QT: 382 QTc: 418 [place]: P: 57 MA: 160 QRS: 63 T: 66 INTERPRETIVE STATEMENTS: Normal sinus rhythm Normal ECG Compared to ECG 03/04/2018 19:36:41 Sinus bradycardia no longer present First degree AV block no longer present ST (T wave) deviation no longer present Possible ischemia no longer present Electronically Signed On 10-12-19 06:20:16 CDT by Alvarado Bill
== END 2019-10-11 20:04 | disposition home or self-care (01) ==
LOC: ER 16:29
DX: I10 Essential (primary) hypertension (principal); E87.6 Hypokalemia; E05.90 Thyrotoxicosis, unspecified without thyrotoxic crisis or storm; Z87.891 Personal history of nicotine dependence
CPT/HCPCS: 36415; 71045; 74177; 80048; 80076; 83735; 84443; 84481; 84484; 85025; 93005; 99285; Q9967

== ENCOUNTER 2019-10-16 15:43 | Emergency (ER) | payer SELFPAY ==
--- NOTE | 2019-10-16 17:59 | ER ---
Nurse's Notes [facility] Name: Tawnya Simental Age: 39 yrs Sex: Female : 1980 Arrival Date: 10/16/2019 Time: 15:44 Bed 17 Private MD: Diagnosis: Essential (primary) hypertension Presentation: 10/15 15:49 Chief complaint: Patient states: BP has been elevated since last visit here Sunday. New ll1 medications started for her thyroid level being low. BP 192/112 before coming in. Coronavirus screen: Proceed with normal triage. Patient denies a cough. Patient denies shortness of breath or difficulty breathing. Patient denies measured and/or subjective temperature greater than 100.4F prior to today's visit. Patient denies travel on a cruise ship or to a country the [facility] currently lists as an affected area. Patient denies contact with known and/or suspected case of COVID-19. Ebola Screen: Patient denies travel to an Ebola-affected area in the 21 days before illness onset. Initial Sepsis Screen: Does the patient meet any 2 criteria? No. Patient's initial sepsis screen is negative. Risk Assessment: Do you want to hurt yourself or someone else? Patient reports no desire to harm self or others. Onset of symptoms was October 16, 2019. 15:49 Method Of Arrival: Ambulatory ll1 15:49 Acuity: JUAN 3 ll1 17:50 Initial Sepsis Screen: Does the patient have a suspected source of infection? No. ah Patient's initial sepsis screen is negative. Historical: - Allergies: 15:51 No Known Allergies; ll1 - PMHx: 15:51 Hypertension; ll1 - PSHx: 15:51 Tubal ligation; ll1 - Immunization history:: Flu vaccine is not up to date. - Social history:: Smoking status: Patient denies any tobacco usage or history of. Patient/guardian denies using alcohol, street drugs, tobacco products. Screenin:50 Abuse screen: Denies threats or abuse. Nutritional screening: No deficits noted. Tuberculosis screening: No symptoms or risk factors identified. Fall Risk None identified. Assessment: 17:49 General: Appears in no apparent distress. Behavior is calm, cooperative, appropriate for age. Pain: Denies pain. Neuro: Level of Consciousness is awake, alert, obeys commands, Oriented to person, place, time, situation, Appropriate for age. Cardiovascular: Heart tones S1 S2 present Capillary refill < 3 seconds Patient's skin is warm and dry. Rhythm is sinus rhythm. Respiratory: Airway is patent Respiratory effort is even, unlabored, Respiratory pattern is regular, symmetrical. Derm: Skin is intact, is healthy with good turgor, Skin is dry. Vital Signs: 15:49 BP 153 / 87; Pulse 85; Resp 18; Temp 98.0; Pulse Ox 100% ; Pain 7/10; ll1 17:06 BP 138 / 99; Pulse 75; ll1 17:43 BP 151 / 92; Pulse 70; Resp 18; Pulse Ox 98% ; ah ED Course: 15:44 Patient arrived in ED. mr 15:51 Triage completed. ll1 15:51 Arm band placed on Patient notified of wait time. ll1 17:34 Ashanti Gillis FNP-C is [facility]. kb 17:34 Faustino Lee MD is Attending Physician. kb 17:39 Dianna Llanos, RN is Primary Nurse. 18:06 No provider procedures requiring assistance completed. 18:07 Patient has correct armband on for positive identification. Bed in low position. Call light in reach. Side rails up X 1. Adult w/ patient. environmental compliance inspector on. Pulse ox on. NIBP on. 18:07 Patient did not have IV access during this emergency room visit. Administered Medications: No medications were administered Outcome: 17:58 Discharge ordered by . 18:07 Discharged to home ambulatory. 18:07 Condition: good 18:07 Discharge instructions given to patient, Instructed on discharge instructions, follow up and referral plans. Demonstrated understanding of instructions, follow-up care. 18:08 Patient left the ED. Signatures: Ashanti Gillis FNP-C FNP-Suraj Joan Nixon Dianna Llanos RN RN Erasmo Abdalla RN RN ll1 Corrections: (The following items were deleted from the chart) 15:53 15:49 Chief complaint: Patient states: BP has been elevated since last visit here ll1 Sunday. New medications started. BP 192/112 before coming in. ll1
--- NOTE | 2019-10-16 18:00 | EDPHYS ---
Physician Documentation [facility] Name: Tawnya Simental Age: 39 yrs Sex: Female : 1980 Arrival Date: 10/16/2019 Time: 15:44 Bed 17 Private MD: ED Physician Faustino Lee HPI: 10/15 17:59 This 39 yrs old Female presents to ER via Ambulatory with complaints of High kb Blood Pressure. 17:59 The patient has elevated blood pressure and discovered this at home, with a home kb device. Onset: The symptoms/episode began/occurred today. Associated signs and symptoms: The patient has no apparent associated signs or symptoms. Severity of symptoms: At its worst the blood pressure was moderate, in the emergency department the blood pressure is improved. The patient has not experienced similar symptoms in the past. The patient has been recently seen by a physician: the patient's primary care provider, 4 day(s) ago, The patient has been recently seen at the [facility] Emergency Department, last week. Pt reports she thinks she had a panic attack that caused her BP to go up. Reports she had shortness of breath and tingling in her fingertips. Symptoms resolved since arrival. States she feels fine now. 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 . Historical: - Allergies: 15:51 No Known Allergies; ll1 - PMHx: 15:51 Hypertension; ll1 - PSHx: 15:51 Tubal ligation; ll1 - Immunization history:: Flu vaccine is not up to date. - Social history:: Smoking status: Patient denies any tobacco usage or history of. Patient/guardian denies using alcohol, street drugs, tobacco products. ROS: 17:58 Constitutional: Negative for fever, chills, and weight loss, ENT: Negative for injury, kb pain, and discharge, Neck: Negative for injury, pain, and swelling, Cardiovascular: Negative for chest pain, palpitations, and edema, Respiratory: Negative for shortness of breath, cough, wheezing, and pleuritic chest pain, Abdomen/GI: Negative for abdominal pain, nausea, vomiting, diarrhea, and constipation, MS/Extremity: Negative for injury and deformity, Skin: Negative for injury, rash, and discoloration, Neuro: Negative for headache, weakness, numbness, tingling, and seizure. Exam: 17:59 Constitutional: This is a well developed, well nourished patient who is awake, alert, kb and in no acute distress. Head/Face: Normocephalic, atraumatic. Chest/axilla: Normal chest wall appearance and motion. Nontender with no deformity. No lesions are appreciated. Cardiovascular: Regular rate and rhythm with a normal S1 and S2. No gallops, murmurs, or rubs. Normal PMI, no JVD. No pulse deficits. Respiratory: Lungs have equal breath sounds bilaterally, clear to auscultation and percussion. No rales, rhonchi or wheezes noted. No increased work of breathing, no retractions or nasal flaring. Abdomen/GI: Soft, non-tender, with normal bowel sounds. No distension or tympany. No guarding or rebound. No evidence of tenderness throughout. Skin: Warm, dry with normal turgor. Normal color with no rashes, no lesions, and no evidence of cellulitis. MS/ Extremity: Pulses equal, no cyanosis. Neurovascular intact. Full, normal range of motion. Neuro: Awake and alert, GCS 15, oriented to person, place, time, and situation. Cranial nerves II-XII grossly intact. Motor strength 5/5 in all extremities. Sensory grossly intact. Cerebellar exam normal. Normal gait. Vital Signs: 15:49 BP 153 / 87; Pulse 85; Resp 18; Temp 98.0; Pulse Ox 100% ; Pain 7/10; ll1 17:06 BP 138 / 99; Pulse 75; ll1 17:43 BP 151 / 92; Pulse 70; Resp 18; Pulse Ox 98% ; ah MDM: 17:35 Patient medically screened. kb 17:59 Data reviewed: vital signs, nurses notes. Data interpreted: Pulse oximetry: on room air kb is 100 %. Interpretation: normal. Counseling: I had a detailed discussion with the patient and/or guardian regarding: the historical points, exam findings, and any diagnostic results supporting the discharge/admit diagnosis, the need for outpatient follow up, a family practitioner, to return to the emergency department if symptoms worsen or persist or if there are any questions or concerns that arise at home. Administered Medications: No medications were administered Disposition: 19:34 Co-signature as Attending Physician, Faustino Lee MD. [email or web address] Disposition: 10/16/19 17:58 Discharged to Home. Impression: Essential (primary) hypertension. - Condition is Stable. - Discharge Instructions: Hypertension, Owij-hy-Lgud, Panic Attacks, Bpgr-cs-Ntag. - Medication Reconciliation Form, Thank You Letter, Antibiotic Education, Prescription Opioid Use form. - Follow up: Emergency Department; When: As needed; Reason: Worsening of condition. Follow up: Private Physician; When: 2 - 3 days; Reason: Recheck today's complaints, Continuance of care, Re-evaluation by your physician. Signatures: Ashanti Gillis, [employer] SUPERVISOR LIQUID YEAST-CkDianna Littlejohn, RN RN Erasmo Abdalla RN RN ll1 Faustino Lee MD MD [email or web address] Corrections: (The following items were deleted from the chart) 18:08 17:58 10/16/2019 17:58 Discharged to Home. Impression: Essential (primary) ah hypertension. Condition is Stable. Forms are Medication Reconciliation Form, Thank You Letter, Antibiotic Education, Prescription Opioid Use. Follow up: Emergency Department; When: As needed; Reason: Worsening of condition. Follow up: Private Physician; When: 2 - 3 days; Reason: Recheck today's complaints, Continuance of care, Re-evaluation by your physician. kb
[2019-10-16 19:13] VITALS: BP 138/99
== END 2019-10-16 18:08 | disposition home or self-care (01) ==
LOC: ER 15:43
DX: I10 Essential (primary) hypertension (principal)
CPT/HCPCS: 99284

== ENCOUNTER 2022-06-02 08:20 | Emergency (ER) | payer BC, SELFPAY ==
--- OUTSIDE RECORDS SUMMARY | 2022-06-02 08:23 | XMS REPORT | Continuity of Care Document ---
:1980 Author Organization [facility] t Address [address] [place] [address] [address] [place] [address] Care Team Providers Name Role Phone PCP, PATIENT DOES NOT HAVE A Primary Care Physician Unavaila ble Only, Ang Db Test Attending Clinician Unavailable Luis BEEF FARMER, Faith Attending Clinician FAITH SMITH Attending Clinician Unavailable Doctor Unassigned, [place] Attending Clinician Unavailable Payers Payer Name Policy Type Policy Number Effective Date Expiration Date S ource Problems Condition Condition Condition Status Onset Resolution Last Treating Co mments Source Name Details Category Date Date Treatment Clinician Date Abdominal Abdominal Disease Active Overview: Univers pain, pain, 5-16 Formattin ity of other other 00:00: g of this [place] specified specified [address] [facility] site site might be Branch different from the original. Side Allergies, Adverse Reactions, Alerts Allergy Allergy Status Severity Reaction(s) Onset Inactive Treating Comm ents Source Name Type Date Date Clinician NO KNOWN Drug Active Univers ALLERGIE Class ity of S [facility] Social History Social Habit Start Date Stop Date Quantity Comments Source Exposure to Yes [facility] SARS-CoV-2 (event) [facility] History of tobacco Cigarette Smoker University of use [facility] Alcohol intake 2014-11-04 2014-11-04 Current University of 00:00:00 00:00:00 non-drinker of [facility] alcohol Branch (finding) Cigarettes smoked 2014-11-04 2014-11-04 Univers ity of current (pack per 00:00:00 00:00:00 ) - Reported Branch Cigarette 2014-11-04 2014-11-04 University of pack-years 00:00:00 00:00:00 [facility] Tobacco use and 2014-11-04 2014-11-04 Never used Universit y of exposure 00:00:00 00:00:00 [facility] Sex Assigned At [birth year] Universit y of 00:00:00 00:00:00 [facility] Smoking Status Start Date Stop Date Source Current every day smoker 2014-11-04 00:00:00 Uni versity of [facility] Medications Ordered Filled Start Stop Current Ordering Indication Dosage Frequency Signature Comments Components Source Medication Medication Date Date Medication? Clinician (SIG) Name Name No known No Univers medications 7-15 ity of 11:28: [address] No known No Univers medications 7-15 ity of 11:28: [address] Immunizations Ordered Filled Immunization Date Status Comments Sourc e Immunization Name Name Td 2008-04-[address] [facility] 00:00:00 [facility] Td 2008-04-[address] [facility] 00:00:00 [facility] Procedures Procedure Date / Time Performed Performing Clinician Sourc e CONSENT/REFUSAL FOR 2021-05-05 21:40:10 Doctor Unassigned, [facility] AND Name [facility] TREATMENT Encounters Start End Encounter Admission Attending Care Care Encounter Source Date/Time Date/Time Type Type Clinicians Facility Department ID 2021-05-05 2021-05-05 Laboratory Only, Ang Db Test [facility] [id number] Univers 16:00:00 16:15:00 [id number] ity of [place] [id number] [place] as LINDSEY?BLEA [id number] [address] MEDICAL OFFICE BUILDING 2021-05-05 2021-05-05 Outpatient R LUIS [facility] [id number] Univers 16:00:00 16:00:00 FAITH ity of [facility] 2021-05-05 2021-05-05 Orders Doctor WU [id number] Univers 00:00:00 00:00:00 Only Unassigned, SAMEER [id number] ity of [place] [facility] [id number] [place] as [id number] Medi vero 009 Branch Results This patient has no known results.
[2022-06-02 09:00] LABS: Hematocrit 40.6 % (36.0-45.0); Lymphocytes % 35.7 % (15.3-44.8); MCV 84.1 fL (80-100); MPV 7.7 fL (7.6-11.3); RBC Red Blood Cell Count 4.83 M/uL (3.86-4.86)
[2022-06-02 09:16] LABS: Albumin 3.6 g/dL (3.4-5.0); Bilirubin Total 0.3 mg/dL (0.2-1.0); Potassium 3.6 mmol/L (3.5-5.1); Protein, Total 7.1 g/dL (6.4-8.2); Troponin High Sensitivity 4.1 pg/mL (<58.9)
--- NOTE | 2022-06-02 10:34 | RAD REPORT ---
EXAM DESCRIPTION: CT - Abdomen Pelvis W Contrast - 06/02/2022 10:15 am CLINICAL HISTORY: Abdominal pain COMPARISON: 2019 TECHNIQUE: Computed axial tomography of the abdomen pelvis was obtained. 100 cc Isovue-300 was admin istered intravenously. Oral contrast was not requested which limits evaluation of bowel and appendix All CT scans are performed using dose optimization technique as appropriate and may include automated exposure control or mA/KV adjustment according to patient size. FINDINGS: The liver, spleen, pancreas, right adrenal and kidneys appear unremarkable. There is no evidence of diverticulitis. Normal appendix Small left adrenal nodule unchanged likely an adenoma. No adnexal mass Small umbilical hernia IMPRESSION: No acute abnormality is displayed.
--- NOTE | 2022-06-02 11:06 | EDPHYS ---
Physician Documentation [facility] Name: Tawnya Simental Age: 42 yrs Sex: Female : 1980 Arrival Date: 06/02/2022 Time: 08:25 Bed 4 Private MD: ED Physician Darren Hayes HPI: 06/02 08:44 This 42 yrs old Female presents to ER via Ambulatory with complaints of Pain When aj3 Breathing, Numbness Of Arm, Abdominal Pain. 08:44 Patient reports having some chronic abdominal issues that she is seeing GI for. She has aj3 been having worsening epigastric pain and constant diarrhea. Today she noticed some pain in her neck which radiated down to her left arm and causes left hand tingling. No reports of any chest pain, dizziness, bloody/black stool, urinary symptoms, fever or chills.. 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 - Social history:: Smoking status: Patient reports the use of cigarette tobacco products, smokes one-half pack cigarettes per day. ROS: 08:44 Constitutional: Negative for fever, chills, and weight loss, Skin: Negative for injury, aj3 rash, and discoloration, Neuro: Negative for syncope, headache, weakness, numbness, tingling, and seizure. 08:44 Cardiovascular: Negative for chest pain. 08:44 Respiratory: Positive for shortness of breath. 08:44 Abdomen/GI: Positive for abdominal pain, diarrhea. 08:44 Neuro: Positive for numbness, tingling, to left hand. Exam: 08:47 Constitutional: This is a well developed, well nourished patient who is awake, alert, aj3 and in no acute distress. Head/Face: Normocephalic, atraumatic. ENT: Nares patent. No nasal discharge, no septal abnormalities noted. Tympanic membranes are normal and external auditory canals are clear. Oropharynx with no redness, swelling, or masses, exudates, or evidence of obstruction, uvula midline. Mucous membranes moist. Neck: Trachea midline and no cervical lymphadenopathy. Supple, full range of motion without nuchal rigidity. Cardiovascular: Regular rate and rhythm with a normal S1 and S2. No gallops, murmurs, or rubs. Normal PMI, no JVD. No pulse deficits. Respiratory: Lungs have equal breath sounds bilaterally, clear to auscultation and percussion. No rales, rhonchi or wheezes noted. No increased work of breathing, no retractions or nasal flaring. Skin: Warm, dry with normal turgor. Normal color with no rashes, no lesions, and no evidence of cellulitis. MS/ Extremity: Pulses equal, no cyanosis. Neurovascular intact. Full, normal range of motion. Neuro: Awake and alert, GCS 15, oriented to person, place, time, and situation. Cranial nerves II-XII grossly intact. Motor strength 5/5 in all extremities. Sensory grossly intact. Cerebellar exam normal. Normal gait. 08:47 Abdomen/GI: Bowel sounds: normal, Palpation: mild abdominal tenderness, in the epigastric area. 08:47 ECG was reviewed by the Attending Physician. aj3 Vital Signs: 08:40 BP 139 / 82; Pulse 79; Resp 16; Temp 98.4; Pulse Ox 100% ; Weight 91.17 kg; Height 5 ll1 ft. 11 in. (180.34 cm); Pain 4/10; 09:34 BP 108 / 68; Pulse 66; ll1 11:30 BP 110 / 73; Pulse 61; Resp 15; Pulse Ox 100% ; Pain 2/10; ll1 08:40 Body Mass Index 28.03 (91.17 kg, 180.34 cm) ll1 MDM: 08:31 Patient medically screened. aj3 11:12 Differential diagnosis: ACS, pneumonia, electrolyte imbalance, colitis. Data reviewed: aj3 vital signs, nurses notes. ED course: ED work-up is reassuring. CT scan without signs of infection or obstruction after reviewing. EKG and labs also normal. Patient does not require admission at this time. She has appointment next week with GI regarding her chronic diarrhea. Will start her on Bentyl. Patient given nausea medication in the ED. Discharge results and plan discussed with patient and is agreeable. ER return precautions given. 11:15 Consideration of Admission/Observation Patient symptoms improved after reassessment. aj3 Findings do not warrant admission.. Care significantly affected by the following chronic conditions: Thyroid disease. Counseling: I had a detailed discussion with the patient and/or guardian regarding: the historical points, exam findings, and any diagnostic results supporting the discharge/admit diagnosis, lab results, radiology results, to return to the emergency department if symptoms worsen or persist or if there are any questions or concerns that arise at home. 06/02 08:43 Order name: CBC with Diff; Complete Time: 09:06/02 08:43 Order name: CMP; Complete Time: :06/02 08:43 Order name: Lipase; Complete Time: :06/02 08:43 Order name: Test, Serum; Complete Time: :06/02 08:43 Order name: Troponin HS; Complete Time: :06/02 08:43 Order name: CT Abd/Pelvis - IV Contrast Only; Complete Time: 10:56 06/02 08:43 Order name: IV Saline Lock; Complete Time: 08:52 06/02 08:43 Order name: Labs collected and sent; Complete Time: 08:52 06/02 08:43 Order name: EKG - Nurse/Tech; Complete Time: 08:45 EC:41 Rate is 72 beats/min. Rhythm is regular. QRS [place] is Normal. [place] interval is normal. QRS aj3 interval is normal. QT interval is normal. T waves are Normal. No ST changes noted. Clinical impression: Normal ECG. Administered Medications: 11:16 Drug: Zofran (Ondansetron) 4 mg Route: IVP; Site: right antecubital; ll1 11:36 Follow up: Response: No adverse reaction; Nausea is decreased; RASS: Alert and Calm (0) ll1 Disposition: 13:11 Co-signature as Attending Physician, Darren Hayes MD I reviewed the patient's care rt provided by the Advanced Practice Provider and agree with the diagnosis and treatment plan. Disposition Summary: 06/02/22 11:05 Discharge Ordered Location: Home aj3 Problem: new aj3 Symptoms: have improved aj3 Condition: Stable aj3 Diagnosis - Other abdominal pain aj3 - Diarrhea, unspecified aj3 - left adenoma aj3 Followup: aj3 - With: Private Physician - When: 1 - 2 days - Reason: Recheck today's complaints Discharge Instructions: - Discharge Summary Sheet aj3 - Diarrhea, Adult aj3 Forms: - Medication Reconciliation Form aj3 - Work release form aj3 - Thank You Letter aj3 - Antibiotic Education aj3 - Prescription Opioid Use aj3 Prescriptions: - dicyclomine 20 mg Oral tablet - take 1 tablet by ORAL route 2 times per day; 30 tablet; Refills: 0, Product aj3 Selection Permitted - ondansetron 4 mg Oral - take 4 milligrams by SUBLINGUAL route every 8 hours; 15 tablet; Refills: 0, aj3 Product Selection Permitted Signatures: Dispatcher [employer] EDMS Erasmo Abdalla RN RN ll1 Marian Siu, WHITING CAN WORKER WHITING CAN WORKER aj3 Darren Hayes MD MD rt Corrections: (The following items were deleted from the chart) 11:17 11:12 ED course: ED work-up is reassuring. Chest x-ray was clear after reviewing. EKG aj3 and labs also normal. Patient does not require admission at this time. She has appointment next week with GI regarding her chronic diarrhea. Will start her on Bentyl. Patient given nausea medication in the ED. Discharge results and plan discussed with patient and is agreeable. ER return precautions given. aj3
--- NOTE | 2022-06-02 11:06 | ER ---
Nurse's Notes [facility] Name: Tawnya Simental Age: 42 yrs Sex: Female : 1980 Arrival Date: 06/02/2022 Time: 08:25 Bed 4 Private MD: Diagnosis: Other abdominal pain;Diarrhea, unspecified;left adenoma Presentation: 06/02 08:40 Chief complaint: Patient states: Abd pain for about 1 year with diarrhea and some ll1 nausea. Today throat feels tight, pain L arm, hand tingly. No fevers. Coronavirus screen: Vaccine status: Patient reports being unvaccinated. Client denies travel out of the [place] in the last 14 days. At this time, the client does not indicate any symptoms associated with coronavirus-19. Ebola Screen: Patient denies travel to an Ebola-affected area in the 21 days before illness onset. Initial Sepsis Screen: Does the patient meet any 2 criteria? No. Patient's initial sepsis screen is negative. Does the patient have a suspected source of infection? Yes: Acute abdominal pain. Initial Sepsis Screen: Does the patient meet any 2 criteria?. Risk Assessment: Do you want to hurt yourself or someone else? Patient reports no desire to harm self or others. Onset of symptoms was June 02, 2021. 08:40 Method Of Arrival: Ambulatory ll1 08:40 Acuity: JUAN 3 ll1 Triage Assessment: 08:40 General: Appears uncomfortable, Behavior is calm, cooperative, appropriate for age. ll1 Pain: Complains of pain in abdomen Pain currently is 4 out of 10 on a pain scale. Quality of pain is described as aching. EENT: Reports throat tightening. Neuro: No deficits noted. Cardiovascular: No deficits noted. GI: Reports upper abdominal pain, diarrhea, nausea. Musculoskeletal: Circulation, motion, and sensation intact. Capillary refill < 3 seconds, Reports numbness in left hand pain in left arm. 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 - Social history:: Smoking status: Patient reports the use of cigarette tobacco products, smokes one-half pack cigarettes per day. Screenin:48 [facility] ED Fall Risk Assessment (Adult) Score/Fall Risk Level 0 - 2 = Low Risk ll1 Oriented to surroundings, Maintained a safe environment, Educated pt \\T\\ family on fall prevention, incl call for assistance when getting out of bed, Hourly rounding (assess needs \\T\\ fall precautionary measures) done. Abuse screen: Denies threats or abuse. Nutritional screening: No deficits noted. Tuberculosis screening: No symptoms or risk factors identified. Assessment: 08:48 Reassessment: No changes from previously documented assessment. Patient and/or family ll1 updated on plan of care and expected duration. Pain level reassessed. Patient is alert, oriented x 3, equal unlabored respirations, skin warm/dry/pink. 09:35 Reassessment: No changes from previously documented assessment. Patient and/or family ll1 updated on plan of care and expected duration. Pain level reassessed. Patient is alert, oriented x 3, equal unlabored respirations, skin warm/dry/pink. gait steady to restroom. 09:50 Reassessment: No changes from previously documented assessment. ll1 10:45 Reassessment: No changes from previously documented assessment. ll1 11:33 GI: Bowel sounds present X 4 quads. Abd is soft and non tender X 4 quads. ll1 Vital Signs: 08:40 BP 139 / 82; Pulse 79; Resp 16; Temp 98.4; Pulse Ox 100% ; Weight 91.17 kg; Height 5 ll1 ft. 11 in. (180.34 cm); Pain 4/10; 09:34 BP 108 / 68; Pulse 66; ll1 11:30 BP 110 / 73; Pulse 61; Resp 15; Pulse Ox 100% ; Pain 2/10; ll1 08:40 Body Mass Index 28.03 (91.17 kg, 180.34 cm) ll1 ED Course: 08:25 Patient arrived in ED. rg4 08:26 Marian Siu, ELIAS is PHCP. aj3 08:26 Darren Hayes MD is Attending Physician. aj3 08:32 Erasmo Abdalla RN is Primary Nurse. ll1 08:32 Arm band placed on Patient placed in an exam room, on a stretcher. ll1 08:42 Triage completed. ll1 08:52 Troponin HS Sent. bc6 08:52 Test, Serum Sent. bc6 08:53 CBC with Diff Sent. bc6 08:53 CMP Sent. bc6 08:53 Lipase Sent. bc6 08:53 Inserted saline lock: 20 gauge in right antecubital area, using aseptic technique. bc6 10:16 CT Abd/Pelvis - IV Contrast Only In Process Unspecified. EDMS 10:30 Patient has correct armband on for positive identification. Bed in low position. Call ll1 light in reach. Client placed on continuous cardiac and pulse oximetry monitoring. NIBP monitoring applied. 11:33 No provider procedures requiring assistance completed. IV discontinued, intact, ll1 bleeding controlled, No redness/swelling at site. Pressure dressing applied. Administered Medications: 11:16 Drug: Zofran (Ondansetron) 4 mg Route: IVP; Site: right antecubital; ll1 11:36 Follow up: Response: No adverse reaction; Nausea is decreased; RASS: Alert and Calm (0) 1 Medication: 08:48 VIS not applicable for this client. ll1 Outcome: 11:05 Discharge ordered by . aj3 11:33 Patient left the ED. ll1 11:33 Discharged to home ambulatory. ll1 11:33 Condition: stable 11:33 Discharge instructions given to patient, Instructed on discharge instructions, follow up and referral plans. Demonstrated understanding of instructions, follow-up care, Prescriptions given X 2. Signatures: Dispatcher [employer] EDJennifer Husain rg4 Erasmo Abdalla RN RN ll1 Marian Siu NP CLOSED CIRCUIT SCREEN WATCHER aj3 Ana Calvo bc6 Corrections: (The following items were deleted from the chart) 09:39 09:35 Reassessment: No changes from previously documented assessment. Patient and/or ll1 family updated on plan of care and expected duration. Pain level reassessed. Patient is alert, oriented x 3, equal unlabored respirations, skin warm/dry/pink. ll1
[2022-06-02] MEDS ORDERED: ONDANSETRON 4 MG/2 ML VIAL ONE (11:17)
[2022-06-02 11:48] VITALS: TEMP 98.4; O2SAT 100
[2022-06-02 11:49] VITALS: BP 108/68
== END 2022-06-02 11:33 | disposition home or self-care (01) ==
LOC: ER 08:20
DX: R10.13 Epigastric pain (principal); R19.7 Diarrhea, unspecified; D35.02 Benign neoplasm of left adrenal gland; F17.210 Nicotine dependence, cigarettes, uncomplicated
CPT/HCPCS: 85025; 36415; 84703; 84484; 83690; 80053; 74177; 96374; 99284; Q9967; J2405; 93005